=== PATIENT | female | born 1960 | race Caucasian/White ===

== ENCOUNTER → 2017-04-29 | Outpatient (CLI) | payer OTHER | END | disposition home or self-care (01) | LOC: KCIC MRI 11:04 | DX: M17.12 Unilateral primary osteoarthritis, left knee (principal); M22.42 Chondromalacia patellae, left knee; M25.462 Effusion, left knee; M25.762 Osteophyte, left knee | CPT/HCPCS: 73721 ==

== ENCOUNTER → 2017-05-31 | Outpatient (CLI) | payer OTHER ==
[2017-05-31 09:46] LABS: PARTIAL THROMBOPLASTIN TIME 34 SEC (24-38); PROTHROMBIN TIME PATIENT 12.6 SEC (11.7-14.0)
[2017-05-31 11:29] LABS: SEDIMENTATION RATE 25 (0-25)
[2017-06-01 03:14] LABS: MRSA BY PCR Negative (Negative)
== END | disposition home or self-care (01) ==
LOC: SURGPAT 14:35
DX: Z01.818 Encounter for other preprocedural examination (principal); I10 Essential (primary) hypertension
CPT/HCPCS: 36415; 71046; 85610; 85651; 85730; 87641

== ENCOUNTER 2017-06-08 06:41 | Inpatient (IN) | payer OTHER ==
[2017-06-08] MEDS ORDERED: fentaNYL PF VIAL 100 MCG/2 ML VIAL IV ×4 (07:00→09:00)
[2017-06-08] MEDS ORDERED: MORPHINE SULFATE 4 MG/ML DISP.SYRIN. IV ×3 (07:00→09:00)
[2017-06-08] MEDS ORDERED: PROCHLORPERAZINE 10 MG/2 ML VIAL. IV (07:00)
[2017-06-08] MEDS ORDERED: LIDOCAINE 1% PF 2 ML VIAL. ID (07:00)
[2017-06-08] MEDS ORDERED: ONDANSETRON PF 4 MG/2 ML VIAL. IV (07:00)
[2017-06-08] MEDS: IV RINGERS,LACTATED 1000ML 1,000 ML IV (07:53)
[2017-06-08] MEDS: CELECOXIB 200 MG CAPSULE. PO ×2 (07:54→20:49)
[2017-06-08] MEDS: HYDROcodone/APAP 7.5/325MG 1 TAB TABLET PO (07:54)
[2017-06-08] MEDS: SCOPOLAMINE 1.5MG PATCH. TD ×2 (07:55→09:00)
[2017-06-08] MEDS ORDERED: fentaNYL PF VIAL 100 MCG/2 ML VIAL (08:34)
[2017-06-08] MEDS ORDERED: SEVOFLURANE 16 TO 30 MINUTES. IH (08:34)
[2017-06-08] MEDS ORDERED: PROPOFOL 20 ML IV (08:35)
[2017-06-08] MEDS ORDERED: ONDANSETRON PF 4 MG/2 ML VIAL. (08:35)
[2017-06-08] MEDS ORDERED: DEXAMETHASONE SOD PHOS 20 MG/5 ML VIAL. (08:35)
[2017-06-08] MEDS ORDERED: MIDAZOLAM HCL/PF 2 MG/2 ML VIAL. (08:36)
[2017-06-08 08:44] LABS: INR 1.1 (0.8-1.1); PARTIAL THROMBOPLASTIN TIME 35 SEC (24-38); PROTHROMBIN TIME PATIENT 13.5 SEC (11.7-14.0)
[2017-06-08] MEDS: TRANEXAMIC ACID 1,000 MG in IV NS 50ML -- 1ST BAG INJ (08:55)
[2017-06-08] MEDS ORDERED: traMADol 50 MG TABLET PO (09:00)
[2017-06-08] MEDS ORDERED: CALCIUM CARBONATE 500 MG TAB.CHEW PO (09:00)
[2017-06-08] MEDS ORDERED: HYDROcodone/APAP 7.5/325MG 1 TAB TABLET PO (09:00)
[2017-06-08] MEDS ORDERED: DEXTROSE 50% 25 GM / 50ML DISP.SYRIN. IV (09:00)
[2017-06-08] MEDS ORDERED: oxyCODONE/APAP 7.5/325 1 TAB TABLET PO (09:00)
[2017-06-08] MEDS ORDERED: diphenhydrAMINE 50 MG/ML VIAL IV (09:00)
[2017-06-08] MEDS ORDERED: oxyCODONE/APAP 5/325 1 TAB TABLET PO (09:00)
[2017-06-08] MEDS ORDERED: 0.9 % SODIUM CHLORIDE 10 ML DISP.SYRIN. IV (09:00)
[2017-06-08] MEDS ORDERED: ACETAMINOPHEN 325 MG TABLET. PO (09:00)
[2017-06-08] MEDS ORDERED: ZOLPIDEM 5 MG TABLET. PO (09:00)
[2017-06-08] MEDS ORDERED: HYDROcodone/APAP 10/325 1 TAB TABLET PO (09:00)
[2017-06-08] MEDS ORDERED: ceFAZolin SODIUM 1 GM in IV DEXTROSE 5% 50 ML IV (09:15)
[2017-06-08] MEDS: TV=100ml MORPHINE 5 MG, KETOROLAC 30 MG, ROPIVacaine 0.5% PF 60 ML, EPINEPH... INT ART (09:31)
[2017-06-08] MEDS ORDERED: ESMOLOL 100 MG/10 ML VIAL. IV (09:47)
[2017-06-08] MEDS: TRANEXAMIC ACID 1,000 MG in IV NS 50ML -- 2ND BAG INJ (10:20)
[2017-06-08] MEDS: IV DEXTROSE 5 %-0.45 % NACL 1,000 ML IV ×2 (12:49→23:15)
[2017-06-08] MEDS: ceFAZolin SODIUM IV Push 1 GM VIAL. IVP ×2 (15:08→20:48)
[2017-06-08] MEDS: PROCHLORPERAZINE 10 MG/2 ML VIAL. IV (16:07)
[2017-06-08] MEDS: FERROUS SULFATE 325 MG TABLET. PO (17:00)
[2017-06-08] MEDS: APIXABAN 2.5 MG TABLET. PO (20:48)
[2017-06-09] MEDS: ceFAZolin SODIUM IV Push 1 GM VIAL. IVP (02:51)
[2017-06-09] MEDS ORDERED: MAGNESIUM HYDROXIDE 2,400 MG/30 ML ORAL.SUSP. PO (06:00)
[2017-06-09 06:57] LABS: HEMATOCRIT 31.8 % (36.0-47.0); MEAN CORPUSCULAR HGB CONC 35 g/dL (31-37)
[2017-06-09] MEDS: IV DEXTROSE 5 %-0.45 % NACL 1,000 ML IV (08:00)
[2017-06-09] MEDS: MULTIVITAMIN with MINERAL TABLET. PO (08:37)
[2017-06-09] MEDS: traMADol 50 MG TABLET PO ×3 (08:37→17:06)
[2017-06-09] MEDS: SENNOSIDES/DOCUSATE 8.6/50MG TABLET. PO (08:37)
[2017-06-09] MEDS: APIXABAN 2.5 MG TABLET. PO (08:37)
[2017-06-09] MEDS: FERROUS SULFATE 325 MG TABLET. PO ×2 (08:37→17:04)
[2017-06-09] MEDS: CELECOXIB 200 MG CAPSULE. PO (08:38)
[2017-06-09] MEDS: ANTI-COAG MONITOR BY PHARMACY. MC (15:14)
[2017-06-09] MEDS ORDERED: BISACODYL 10 MG SUPP.RECT. PR (16:00)
== END 2017-06-09 17:50 | disposition home health service (06) | DRG 470 ==
LOC: OPSVCIP 06:41 → 4 SOUTHEST 12:10
PROC: 0SRD0L9 Replacement of Left Knee Joint with Medial Unicondylar Synthetic Substitute, Cemented, Open Approach (ICD-10-PCS; principal; 2017-06-08 08:57)
DX: M17.12 Unilateral primary osteoarthritis, left knee (principal); K21.9 Gastro-esophageal reflux disease without esophagitis; Z88.8 Allergy status to other drugs, medicaments and biological substances; Z90.710 Acquired absence of both cervix and uterus
CPT/HCPCS: 36415; 73560; 85014; 85018; 85610; 85730; 86850; 86900; 86901; 88304; 88311; 97116-GP; 97150-GP; 97162-GP; 97166-GO; 97530-GP; 97535-GO; C1713; J0171; J0690; J0780; J1100; J1885; J2250; J2270; J2405; J2704; J2795; J3010; J3490; J7120